=== PATIENT | female | born 1955 | race Caucasian/White ===

== ENCOUNTER 2022-03-20 14:07 | Emergency (ER) | payer OTHER, BC ==
[2022-03-20 14:28] VITALS: BP 143/79; PULSE 90; TEMP 97.7; BMI 25.0
[2022-03-20 15:08] LABS: HEMOGLOBIN 14.3 G/dL (10.7-15.3); MCH 26.9 pg (25.7-33.7); MCHC 33.3 g/dl (32.0-36.0); MEAN PLT VOLUME 8.1 fl (7.5-11.1); PLATELET COUNT 293.2 10^3/uL (134-434); RBC 5.31 10^6/uL (3.60-5.2); RDW 15.2 % (11.6-15.6); WHITE BLOOD COUNT 9.3 10^3/uL (4.0-10.8)
[2022-03-20 15:26] LABS: ALBUMIN 4.3 g/dl (3.4-5.0); BILIRUBIN,TOTAL 0.8 mg/dl (0.2-1); CALCIUM 9.9 mg/dl (8.5-10); TOT PROT 7.8 g/dl (6.4-8.2)
[2022-03-20] MEDS ORDERED: AMOX TR/POT CLAV 875MG/125MG TABLETS (FP) PO ONE (16:27)
[2022-03-20] MEDS ORDERED: AMOX TR/POT CLAV 875MG/125MG TABLETS (FP) ONE (16:29)
== END 2022-03-20 16:40 | disposition home or self-care (01) ==
LOC: FER 14:07
DX: H92.02 Otalgia, left ear (principal); H70.92 Unspecified mastoiditis, left ear
CPT/HCPCS: 36415; 70486-TC; 80053; 85025; 99284-25